=== PATIENT | female | born 1950 ===

== ENCOUNTER 2019-02-11 05:43 | Inpatient (IN) | payer MEDICARE, MEDICAID ==
[~2019-02-11] VITALS: Ht 152.4 cm; Wt 92.5 kg
[2019-02-11] VITALS (13 sets, daily range): BP systolic 107–153; BP diastolic 55–93
[~2019-02-11 05:43] MED LIST: AMLODIPINE BESYL5 MG ORAL; BENICAR20 MG ORAL; CRESTOR10 M2 ORAL; DEXILANT60 MG ORAL
[2019-02-11] MEDS ORDERED: NeoSporin Gu Irrig 1ml Amp IRRIG ONE ×3 (07:08→08:15)
[2019-02-11] MEDS ORDERED: Bacitracin 50000 Units Vial ONE (07:08)
[2019-02-11] MEDS ORDERED: ProvayBlue 5mg/ml 10ml amp INJ ONE ×2 (07:15→08:15)
--- NOTE | 2019-02-11 07:24 | Anethesia Preoperative Eval ---
Anesthesia Pre-op PMH/ROS General Date of Evaluation: February 11, 2019 Anesthesiologist: Wade ASA Score: ASA 2 Mallampati Score Class I : Soft palate, uvula, fauces, pillars visible Class II: Soft palate, uvula, fauces visible Class III: Soft palate, base of uvula visible Class IV: Only hard plate visible Mallampati Classification: Class III Surgeon: Denisha Diagnosis: Bladder prolapse Surgical Procedure: Vaginal sling, cystocele, rectocele repaoir Anesthesia History: none Family History: no anesthesia problems Allergies: Coded Allergies: PENICILLINS (Verified Allergy, Unknown, rash; body swelling, 02/10/19) Patient NPO?: Yes NPO Date: February 10, 2019 NPO Time: 1900 Past Medical History Cardiovascular: Reports: HTN, other - HLD; Denies: CAD, [place], valve dz, arrhythmia Pulmonary: Denies: asthma, COPD, ROBERT, other Gastrointestinal/Genitourinary: Reports: GERD; Denies: CRI, ESRD, other Neurologic/Psychiatric: Denies: dementia, CVA, depression/anxiety, TIA, other Endocrine: Denies: DM, hypothyroidism, steroids, other HEENT: Denies: cataract (L), cataract (R), glaucoma, LOWER ELWHA (L), LOWER ELWHA (R), other Hematology/Immune: Denies: anemia, DVT, bleeding disorder, other Musculoskeletal/Integumentary: Reports: OA; Denies: RA, DJD, DDD, edema, other Other: obesity PSxH Narrative: hysterectomy, D&C Anesthesia Pre-op Phys. Exam Physician Exam Last Vital Signs Date Time Temp Pulse Resp B/P (MAP) Pulse Ox O2 Delivery O2 Flow Rate FiO2 02/11/19 06:19 Room Air 02/11/19 06:18 97.0 74 20 153/93 (113) 98 Constitutional: NAD Cardiovascular: RRR Respiratory: CTA Airway Exam Mallampati Score: Class III MO: limited ROM: limited Anesthesia Pre-op A/P Labs see chart Studies Pre-op Studies: EKG - sr Risk Assessment & Plan Assessment: ASA II Plan: GA Status Change Before Surgery: No Pre-Antibiotics Drug: Clindamycin Given Within 1 Hr of Incision: Yes Samaria Reed MD February 11, 2019 07:24
[2019-02-11] MEDS ORDERED: Clindamycin 600mg 50 ML IV ONE (07:25)
[2019-02-11] MEDS ORDERED: Midazolam 2mg/2ml Inj ONE (07:37)
[2019-02-11] MEDS ORDERED: Propofol 200mg/20ml IV ONE (07:37)
[2019-02-11] MEDS ORDERED: fentaNYL 100 mcg/2 mL IV ONE (07:37)
[2019-02-11] MEDS ORDERED: Lidocaine 1% MPF 10mg/ml 5ml ONE (07:37)
[2019-02-11] MEDS ORDERED: Bacitracin 50000 Units Vial IRRIG ONE ×2 (07:38→08:15)
[2019-02-11] MEDS ORDERED: NS Irrig 1000ml IRRIG ONE ×2 (07:38→08:15)
[2019-02-11] MEDS ORDERED: Sterile Water For Irrig 2000ml IRRIG ONE ×2 (07:39→08:15)
[2019-02-11] MEDS ORDERED: Betadine 4oz Bottle TOPIC ONE ×2 (07:39→08:15)
[2019-02-11] MEDS ORDERED: LR 1000ml 1,000 ML IVLG SCH (07:39)
[2019-02-11] MEDS ORDERED: fentaNYL 100 mcg/2 mL IV PRN (07:45)
[2019-02-11] MEDS ORDERED: Midazolam 2mg/2ml Inj IVP PRN (07:45)
[2019-02-11] MEDS ORDERED: Hydromorphone 0.5mg/0.5ml inj IVP PRN (07:45)
[2019-02-11] MEDS ORDERED: Ketorolac 30mg Inj IV PRN ×2 (07:45→11:15)
[2019-02-11] MEDS ORDERED: DiphenhydrAMINE 50mg/ml Inj IVP PRN (07:45)
[2019-02-11] MEDS ORDERED: LORazepam Inj 2mg/ml 1ml IV PRN (07:45)
[2019-02-11] MEDS ORDERED: Metoclopramide 10mg/2ml Inj IVP PRN (07:45)
--- NOTE | 2019-02-11 07:45 | Pre-Procedure Note/Attestation ---
Pre-Procedure Note/Attestation Complete Prior to Procedure Planned Procedure: not applicable Procedure Narrative: cystocele repair rectocele repair vaginal sling cystoscopy Indications for Procedure Pre-Operative Diagnosis: prolapse Attestation I attest that I discussed the nature of the procedure; its benefits; risks and complications; and alternatives (and the risks and benefits of such alternatives ), prior to the procedure, with the patient (or the patient's legal surgical sales representative). I attest that, if there was a reasonable possibility of needing a blood transfusion, the patient (or the patient's legal surgical sales representative) was given the [facility] standardized written summary, pursuant to the Kamaljit Lauren Blood Safety Act ([place] Health and Safety Code # 1645, as amended). I attest that I re-evaluated the patient just prior to the surgery and that there has been no change in the patient's H&P, except as documented below: Lacho Denny MD February 11, 2019 07:45
--- NOTE | 2019-02-11 09:41 | Immediate Post-Op Evaluation ---
Immediate Post-Op Evalulation Immediate Post-Op Evalulation Procedure: Vaginal sling, cystocele and rectocele repair Date of Evaluation: February 11, 2019 Time of Evaluation: 09:43 IV Fluids: 800 Blood Products: 0 Estimated Blood Loss: 50 Urinary Output: 0 Blood Pressure Systolic: 125 Blood Pressure Diastolic: 71 Pulse Rate: 76 Respiratory Rate: 16 O2 Sat by Pulse Oximetry: 95 Temperature (Fahrenheit): 98.8 Pain Score (1-10): 0 Nausea: No Vomiting: No Complications 0 Patient Status: awake, reacts, patent, none Hydration Status: adequate Drug: Levaquin 500mg Given Within 1 Hr of Incision: Yes Samaria Reed MD February 11, 2019 09:41
--- NOTE | 2019-02-11 11:10 | Brief Operative Note ---
Immediate Post Operative Note Operative Note Pre-op Diagnosis: prolapse Procedure: cysto and rectocele repair vaginal sling cystoscopy Post-op Diagnosis: same Post-op Diagnosis: same as pre-op Surgeon: Saleem Denny Anesthesia: general Specimen: none Complications: none Condition: stable Fluids: 500 Estimated Blood Loss: minimal Implant(s) used?: No Lacho Denny MD February 11, 2019 11:10
--- NOTE | 2019-02-11 11:30 | NUR ---
NURSE NOTES: Received report from Hali KAUFMAN, pt laying down a/a/o x4 with no signs of distress or other issues at this time. VS WNL: 122/62, HR:66, Temp: 97.2, spO2:99% on 3L via n/c, pain 04/01, RN will medicate as ordered by . Middleton in place draining well. Iv on the right arm gauge#20 running LR but RN will check fluids as ordered by MD. call light within reach, bed in lowest position, side rales up x2. daughter at bed side. I will f/u as needed.
[2019-02-11 11:45] LABS: BASOPHILS % (AUTO) 0.5 % (0.0-2.0); EOSINOPHILS % (AUTO) 0.4 % (0.0-3.0); HEMATOCRIT 32.5 % (37.0-47.0); HEMOGLOBIN 10.7 G/DL (12.0-16.0); LYMPHOCYTES % (AUTO) 15.7 % (20.0-45.0); MEAN CORPUSCULAR VOLUME 90 FL (80-99); MONOCYTES % (AUTO) 4.9 % (1.0-10.0); NEUTROPHILS % (AUTO) 78.4 % (45.0-75.0); PLATELET COUNT 216 K/UL (150-450); RED BLOOD COUNT 3.63 M/UL (4.20-5.40); RED CELL DISTRIBUTION WIDTH 12.4 % (11.6-14.8); WHITE BLOOD COUNT 7.3 K/UL (4.8-10.8)
[2019-02-11] MEDS: HYDROmorphone 1mg/ml Carpuject IVP PRN ×3 (11:51→20:56)
[2019-02-11 11:55] LABS: ANION GAP 8 mmol/L (5-15); BLOOD UREA NITROGEN 14 mg/dL (7-18); CALCIUM 8.7 MG/DL (8.5-10.1); CARBON DIOXIDE 27 MMOL/L (21-32); CHLORIDE 107 MMOL/L (98-107); CREATININE 0.6 MG/DL (0.55-1.30); POTASSIUM 3.9 MMOL/L (3.5-5.1); SODIUM 142 MMOL/L (136-145)
[2019-02-11] MEDS: D5 1/2NS w/KCl 20mEq 1,000 ML IV SCH ×2 (13:25→20:54)
[2019-02-11] MEDS: Clindamycin 600mg 50 ML IV SCH ×2 (13:26→22:12)
--- NOTE | 2019-02-11 14:45 | NUR ---
CASE MANAGEMENT:REVIEW 68 YR OLD FEMALE HERE FOR ELECTIVE SURGERY SI: BLADDER PROLAPSE 97.0 74 20 153/93 98% ON RA IS: CYSTO AND RECTOCELE REPAIR VAGINAL SLING CYSTOSCOPY IV CLINDAMYCIN Q8HRS : TO MED/SURG 3 EAST POST OP
[2019-02-11] MEDS: Docusate 100mg cap ORAL SCH (17:45)
--- NOTE | 2019-02-11 19:31 | NUR ---
HAND-OFF: Report given to Deanne KAUFMAN, pt in stable condition.
--- NOTE | 2019-02-11 19:32 | NUR ---
NURSE NOTES: Received report from SHAE Parra. Patient sitting up in bed, visitors at bedside. Bed in low position, call light within reach. Will continue to monitor.
--- NOTE | 2019-02-11 20:00 | NUR ---
NURSE NOTES: Patient alert, oriented. Visitors at bedside. IV intact, ahmadi catheter draining clear yellow urine. SCD on bilat. Pain 4/10, refuses pain medication at this time.
[2019-02-12] VITALS: BP 132/63
--- NOTE | 2019-02-12 00:20 | NUR ---
NURSE NOTES: Noted urine color from yellow to blue green.
[2019-02-12] MEDS: HYDROmorphone 1mg/ml Carpuject IVP PRN ×3 (01:18→11:38)
[2019-02-12 04:00] VITALS: BP 121/51
[2019-02-12] MEDS: Clindamycin 600mg 50 ML IV SCH (05:40)
--- NOTE | 2019-02-12 06:30 | NUR ---
NURSE NOTES: Vaginal packing discontinued as ordered. Patient tolerated well.
--- NOTE | 2019-02-12 06:45 | NUR ---
NURSE NOTES: O2 DC'd, O2sat on room air was 88-89%, placed back on O2 2L NC. O2sat up to 93%. Encouraged use of incentive spirometer.
[2019-02-12] MEDS: D5 1/2NS w/KCl 20mEq 1,000 ML IV SCH ×3 (07:07→19:05)
[2019-02-12 07:12] LABS: BASOPHILS % (AUTO) 0.5 % (0.0-2.0); EOSINOPHILS % (AUTO) 0.5 % (0.0-3.0); HEMATOCRIT 31.5 % (37.0-47.0); HEMOGLOBIN 10.6 G/DL (12.0-16.0); LYMPHOCYTES % (AUTO) 19.7 % (20.0-45.0); MEAN CORPUSCULAR VOLUME 90 FL (80-99); MONOCYTES % (AUTO) 8.8 % (1.0-10.0); NEUTROPHILS % (AUTO) 70.5 % (45.0-75.0); PLATELET COUNT 191 K/UL (150-450); RED BLOOD COUNT 3.51 M/UL (4.20-5.40); RED CELL DISTRIBUTION WIDTH 12.4 % (11.6-14.8); WHITE BLOOD COUNT 5.4 K/UL (4.8-10.8)
--- NOTE | 2019-02-12 07:20 | NUR ---
HAND-OFF: Report given to SHAE Roberts. Patient alert, resting comfortably in bed.
[2019-02-12 07:21] LABS: ANION GAP 8 mmol/L (5-15); BLOOD UREA NITROGEN 9 mg/dL (7-18); CALCIUM 8.5 MG/DL (8.5-10.1); CARBON DIOXIDE 27 MMOL/L (21-32); CHLORIDE 105 MMOL/L (98-107); CREATININE 0.5 MG/DL (0.55-1.30); POTASSIUM 3.7 MMOL/L (3.5-5.1); SODIUM 140 MMOL/L (136-145)
--- NOTE | 2019-02-12 07:25 | NUR ---
NURSE NOTES: Report received from Deanne KAUFMAN, rounds made. Patient resting in semi-fowlers position in bed. No SOB on on O2 3LNC. Denies pain. Patient with poor appetite, but denies NV. IVF infusing to right hand, as ordered, site asymptomatic. FC in place, patent, draining green/yellow urine. Sarita-pad in place. Bilateral SCDs on. Encouraged IS, (demonstrated, patient returned demonstration, requires further teaching and encouragement.) Call light in reach, bed in lowest position, will continue to monitor.
[2019-02-12 08:00] VITALS: BP 135/69
[2019-02-12] MEDS: Docusate 100mg cap ORAL SCH ×2 (08:17→19:04)
[2019-02-12] MEDS ORDERED: LEVAQUIN500 MG ORAL (10:39)
[2019-02-12] MEDS ORDERED: NORCO 5-325 TA1 EACH ORAL (10:39)
--- NOTE | 2019-02-12 10:39 | 48 Hour Post Anesthesia Eval ---
Post Anesthesia Evaluation Procedure: Vaginal sling, cystocele and rectocele repair Date of Evaluation: February 12, 2019 Time of Evaluation: 10:38 Blood Pressure Systolic: 128 0: 76 Pulse Rate: 68 Respiratory Rate: 20 Temperature (Fahrenheit): 97.6 O2 Sat by Pulse Oximetry: 98 Airway: patent Nausea: No Vomiting: No Pain Intensity: 2 Hydration Status: adequate Cardiopulmonary Status: stable Mental Status/LOC: patient returned to baseline Follow-up Care/Observations: n/a Post-Anesthesia Complications: none Follow-up care needed: N/A Jonathan Nowak MD February 12, 2019 10:39
--- NOTE | 2019-02-12 11:30 | NUR ---
NURSE NOTES: Patient placed on RA at 1030, rechecked at 1130 95% on RA, no c/o SOB. Dr. Avila and Dr. Denny notified that patient states she is not ready to be discharged home today, awaiting call back from Dr. Denny.
--- NOTE | 2019-02-12 11:50 | NUR ---
NURSE NOTES: Patient araceli-pad changed this AM at 0830 and 1145, small-moderate bloody vaginal bleeding noted. Will continue to monitor.
[2019-02-12 12:00] VITALS: BP 141/82
--- NOTE | 2019-02-12 13:18 | NUR ---
CASE MANAGEMENT:REVIEW 02/12/19 SI: POD #1 S/P CYSTO AND RECTOCELE REPAIR VAGINAL SLING CYSTOSCOPY 98.3 92 19 141/82 93% ON 3L/NC H/H-10.6/31.5 IS: COLACE PO BID IV DILAUDID Q3HRS PRN : MED/SURG STATUS 3 EAST PLAN: DISCHARGE HOME
--- NOTE | 2019-02-12 14:15 | NUR ---
Ciarra Lama Note: P.T evaluation completed and treatment initiated. Please refer to evaluation for current functional status. Addendum: 02/12/19 at 1417 by SARAH POLK PT Amended: Links added.
[2019-02-12] MEDS: HYDROcodone/Acetamin 5/325 tab ORAL PRN ×2 (15:25→20:11)
[2019-02-12 16:00] VITALS: BP 149/64
--- NOTE | 2019-02-12 16:10 | NUR ---
NURSE NOTES: Spoke with Dr. Denny regarding patient states she is not ready to go home today and c/o of abdominal gas. Orders for discharge 02/13 in AM, home care is arranged by Dr. Denny's office. Orders for Mylanta PO PRN received, see order. Will update patient.
--- NOTE | 2019-02-12 17:30 | NUR ---
NURSE NOTES: Patient up with minimal assistance to bathroom, ambulated in halls, sat in chair at bedside. Tolerated fair. Reinforced IS use, poor tolerance. Will continue to monitor.
--- NOTE | 2019-02-12 17:30 | Consultation ---
DATE OF CONSULTATION: 02/12/2019 INTERNAL MEDICINE CONSULTATION CONSULTING PHYSICIAN: Louis Francis M.D. REFERRING PHYSICIAN: Lacho Denny M.D. HISTORY OF PRESENT ILLNESS: This is a 68-year-old female, who has undergone cysto and rectocele repair cystoscopy by Dr. Lacho Denny. Surgery was uncomplicated. At this time, the patient states she is feeling well. She has ambulated to the bathroom. She reports there is old blood around her vagina and urine is clear with a Middleton catheter in place. PAST MEDICAL HISTORY: Urolithiasis, previous appendectomy, lipoma surgery, uterine prolapse, history of Lap-Band, and hypertension. HOME MEDICATIONS: Amlodipine, Crestor, Dexilant, meclizine, Naprosyn, nitrofurantoin, olmesartan, vitamin D3. REVIEW OF SYSTEMS: Denies any headaches, hematemesis, melena, hematochezia . PHYSICAL EXAMINATION: GENERAL: Reveals a 68-year-old female. HEENT: Unremarkable. CHEST: Clear breath sounds bilaterally. ABDOMEN: Soft. NEUROLOGIC: Nonfocal. LABORATORY DATA: Lab testing at an outside hospital is unremarkable. IMPRESSION: 1. Status post cystoscopy and rectocele repair, postoperative day #1. 2. Hypertension. 3. Hyperlipidemia. 4. GERD. DISCUSSION: Continue present care. The patient is doing well. We will ambulate her today. Middleton catheter is in place. We will discuss with Dr. Denny regarding further plans and discharge her either later today or tomorrow. Louis Francis M.D. DR: PRADEEP JOB#: [id number] CC:
--- NOTE | 2019-02-12 19:30 | NUR ---
NURSE NOTES: Received report from SHAE Roberts. Patient sitting in bed, bed in low position, locked, side rails up x2. Call light within reach. Family visiting. Middleton catheter patent, draining yellow green urine. Will continue to monitor.
--- NOTE | 2019-02-12 19:35 | NUR ---
HAND-OFF: Report given to Deanne KAUFMAN.
[2019-02-12 20:00] VITALS: BP 149/75
--- NOTE | 2019-02-12 22:30 | NUR ---
NURSE NOTES: Patient sleeping on and off. Rates pain 2/10. Refuses pain med at this time. Encouraged use of incentive spirometer while awake.
[2019-02-13] VITALS: BP 135/73
--- NOTE | 2019-02-13 02:49 | NUR ---
NURSE NOTES: Pt ambulating in room without difficulty using walker. Tolerated well.Tolerating PO well, IV heplocked.
--- NOTE | 2019-02-13 03:11 | NUR ---
NURSE NOTES: Patient c/o pain at saline lock site, IV DC'd. Pt refused IV start at this time.
[2019-02-13 04:00] VITALS: BP 153/75
[2019-02-13] MEDS: HYDROcodone/Acetamin 5/325 tab ORAL PRN ×2 (06:22→11:14)
--- NOTE | 2019-02-13 07:48 | NUR ---
NURSE NOTES: Report received from Deanne KAUFMAN, rounds made. Patient resting in left lateral position in bed. Denies SOB on RA, pain or NV. No IV access. Sarita-pad in place, light pink drainage. FC in place, patent, draining yellow/green urine to gravity. SCDs off. Refused breakfast. Reinforced IS, patient performed IS correctly, needs reminders. Call light in reach, bed in lowest position, will continue to monitor.
[2019-02-13 08:00] VITALS: BP 143/77
--- NOTE | 2019-02-13 08:15 | Pulmonology Progress Note ---
Assessment/Plan Assessment/Plan IMPRESSION: 1. Status post cystoscopy and rectocele repair, postoperative day #2. 2. Hypertension. 3. Hyperlipidemia. 4. GERD. DISCUSSION: Continue present care. The patient is doing well. DC home today. Discussed with Dr Denny Louis Francis M.D. Subjective Interval Events: Doing well Constitutional: Reports: no symptoms HEENT: Repors: no symptoms Respiratory: Reports: no symptoms Cardiovascular: Reports: no symptoms Gastrointestinal/Abdominal: Reports: no symptoms Genitourinary: Reports: no symptoms Allergies: Coded Allergies: PENICILLINS (Verified Allergy, Unknown, rash; body swelling, 02/10/19) Objective Last 24 Hour Vital Signs Date Time Temp Pulse Resp B/P (MAP) Pulse Ox O2 Delivery O2 Flow Rate FiO2 02/13/19 04:00 98.2 83 18 153/75 (101) 98 02/13/19 00:00 99.4 82 18 135/73 (93) 93 02/12/19 21:00 Room Air 02/12/19 20:00 98.4 90 18 149/75 (99) 93 02/12/19 17:00 Room Air 02/12/19 16:00 98.5 95 20 149/64 (92) 95 02/12/19 12:00 98.3 92 19 141/82 (101) 93 02/12/19 10:39 68 20 98 02/12/19 09:00 Nasal Cannula 3.0 Intake and Output 02/12/19 02/13/19 18:59 06:59 Intake Total 1100 ml 1100 ml Output Total 2825 ml 1000 ml Balance -1725 ml 100 ml Intake Oral 400 ml IV Total 1100 ml 700 ml Output Urine Total 2825 ml 1000 ml # Bowel Movements 1 1 General Appearance: no acute distress HEENT: normocephalic Respiratory/Chest: chest wall non-tender, lungs clear Cardiovascular: normal peripheral pulses, normal rate Abdomen: normal bowel sounds Current Medications Medications (Trade) Dose Ordered Sig/Crispin Route PRN Reason Start Time Stop Time Status Last Admin Dose Admin Acetaminophen (Tylenol) 650 mg Q4H PRN ORAL FEVER 02/11/19 11:15 03/13/19 11:14 Acetaminophen (Tylenol) 650 mg Q6H PRN ORAL Mild Pain (Pain Scale 1-3) 02/11/19 11:15 03/13/19 11:14 Acetaminophen/ Hydrocodone Bitart ([place] 5/325) 1 tab Q4H PRN ORAL Moderate Pain (Pain Scale 4-6) 02/11/19 11:15 02/18/19 11:14 02/13/19 06:22 Al Hydroxide/Mg Hydroxide (Mylanta) 30 ml Q6H PRN ORAL GAS 02/12/19 16:15 03/14/19 16:14 02/12/19 16:46 Dextrose/ Electrolytes 1,000 ml @ 100 mls/hr Q10H IV 02/11/19 11:07 03/13/19 11:06 02/12/19 19:05 Docusate Sodium (Colace) 100 mg TWICE A DAY ORAL 02/11/19 18:00 03/13/19 17:59 02/12/19 19:04 Hydromorphone HCl (Dilaudid) 1 mg Q3H PRN IVP pain score 7-10 02/11/19 11:15 02/18/19 11:14 02/12/19 11:38 Ketorolac Tromethamine (Toradol 30mg) 15 mg Q6H PRN IV For Breakthrough pain 02/11/19 11:15 02/16/19 11:14 Ondansetron HCl (Zofran) 4 mg Q6H PRN IVP Nausea & Vomiting 02/11/19 11:15 03/13/19 11:14 Louis Francis MD February 13, 2019 08:15
[2019-02-13] MEDS: Docusate 100mg cap ORAL SCH (09:25)
[2019-02-13] MEDS: D5 1/2NS w/KCl 20mEq 1,000 ML IV SCH (13:07)
--- NOTE | 2019-02-13 13:20 | NUR ---
NURSE NOTES: Large ahmadi drainage bag emptied (375 ml yellow/green urine), removed and connected leg bag at 1310. Urine noted in leg bag at 1320. Denies abdominal pressure or pain. Instructed patient and daughter on how to connect and disconnect leg bag and large ahmadi drainage bag. Supplies provided. See discharge note.
--- NOTE | 2019-02-13 13:25 | NUR ---
NURSE NOTES: Discharge instructions, supplies and prescription x1 reviewed with patient and daughter, verbalized understanding. All belongings, supplies (basin x2, large ahmadi drainage bag, canister, araceli-pads), prescription x1, seat cushion (doughnut) sent with patient. Patient sent down to [facility] with leg bag (patent), in WC, in stable condition. Discharged home at 1325.
--- NOTE | 2019-02-14 08:48 | Discharge Summary ---
Discharge Summary Discharge Summary _ DATE OF ADMISSION: 02/11/2019 DATE OF DISCHARGE: 02/13/2019 DISCHARGED BY: Dr. Jose Francis SURGEON: Dr. Lacho Denny BRIEF HOSPITAL COURSE: Patient is a 68-year-old female, with bladder prolapse, was admitted and underwent vaginal sling, cystocele and rectocele repair by Dr. Denny. She tolerated procedure well. Postoperatively, she was admitted for postop care. She was given IV hydration. She was given pain management. She was given incentive spirometer. Diet was advanced. She was followed by upper leather sorter. Following day, vaginal packing was removed. She underwent physical therapy. Middleton catheter connected to a leg bag. Blood work and vital signs were stable. She was eventually discharged home. FINAL DIAGNOSES: Bladder prolapse status post vaginal sling, cystocele and rectocele repair DISPOSITION: Patient was discharged home. DISCHARGE MEDICATIONS: Refer to Discharge Medication List. Continue levofloxacin 500 mg daily for 1 week. DISCHARGE INSTRUCTIONS: Follow-up with Dr. Denny. I have been assigned to complete a discharge summary on this account, I was not involved with the patient's management. Sylwia Crystal NP February 14, 2019 08:48
--- NOTE | 2019-02-18 07:00 | Operative Note - Dictated ---
DATE OF OPERATION: 02/11/2019 PREOPERATIVE DIAGNOSES: 1. Vaginal prolapse. 2. Stress incontinence. POSTOPERATIVE DIAGNOSES: Same. OPERATIONS: Transvaginal cystocele repair, rectocele repair, vaginal wall sling, and cystoscopy. OPERATED BY: Lacho Denny M.D. FINDINGS: Complete vaginal prolapse. INDICATIONS FOR SURGERY: The patient had multiple episodes of incontinence and overactive bladder with mixed incontinence and vaginal prolapse. Treatment options were explained in great length including all potential complications. She signed the consent. DESCRIPTION OF PROCEDURE: She was brought to the operating room, placed in lithotomy position, and prepped and draped in standard fashion. Under general anesthesia, Syed retractor was placed. Goalpost incision was made and bladder was from the vagina. Retropubic space was entered and using BioMotiv device, sutures were placed in the sacral spinal muscles and fascia and brought outside of the vagina. Bladder was then reapproximated. The cystocele repair was reduced with interrupted [id number] Vicryl sutures. Rectocele was repaired in standard fashion. Good approximation of the rectus fascia. The vagina and colposuspension was accomplished with Prolene sutures. The vagina was trimmed and closed. Cystoscopy showed no evidence of bladder perforation. Both ureteral orifices were injected with indigo carmine. The patient tolerated the procedure well with good . Sponge count and instrument count was correct. Middleton catheter was left indwelling. Packing was also left indwelling. The patient tolerated the procedure well. Lacho Denny M.D. DR: Andres JOB#: [id number] CC:
== END 2019-02-13 13:25 | disposition home or self-care (01) | DRG 748 ==
LOC: SDSOVERFLO 05:43 → 3E 10:38
PROC: 0USG0ZZ Reposition Vagina, Open Approach (ICD-10-PCS; principal; 2019-02-11 07:30)
PROC: 0JQC0ZZ Repair Pelvic Region Subcutaneous Tissue and Fascia, Open Approach (ICD-10-PCS; principal; 2019-02-11 07:30)
PROC: 0TJB8ZZ Inspection of Bladder, Via Natural or Artificial Opening Endoscopic (ICD-10-PCS; principal; 2019-02-11 07:30)
DX: N81.4 Uterovaginal prolapse, unspecified (principal); Z68.41 Body mass index [BMI] 40.0-44.9, adult; E66.9 Obesity, unspecified; I10 Essential (primary) hypertension; E78.5 Hyperlipidemia, unspecified; K21.9 Gastro-esophageal reflux disease without esophagitis; Z88.0 Allergy status to penicillin; Z90.710 Acquired absence of both cervix and uterus; N39.3 Stress incontinence (female) (male)
CPT/HCPCS: 36415; 80048; 85025; 87081; 94003; 94150; A4246; J2250; J2405; S0077